=== PATIENT | male | born 1950 | race Caucasian/White ===

== ENCOUNTER 2016-04-11 11:42 | Inpatient (IN) | payer MEDICARE, BC ==
[~2016-04-11] VITALS: Ht 175.3 cm; Wt 77.8 kg
[~2016-04-11 11:42] MED LIST: ASPIRIN E.C. 8181 MG PO; HYDROXYURE500 MG/CAP PO; LOPRESSOR HCT 21 TA1 PO; MASON NATURAL1200 MG PO; MULTI VITAMINS1 TAB PO; RT ADVAIR 528 DISKUS IH; RT SPIRIVA18 MCG IH; SLO-NIACIN500 MG PO; ZESTRIL 10MG10 MG PO
[2016-04-11 12:19] LABS: BASO # 0.1 (0.0-0.2); BASO % 1.2 % (0.0-2.0); EOS # 0.1 (0.0-0.7); EOS % 0.9 % (0-4.0); GRAN # 7.8 (1.4-6.5); GRAN % 83.5 % (42.2-75.2); HEMATOCRIT 39.6 % (42.0-52.0); HEMOGLOBIN 12.9 g/dl (13.5-18.0); LYMPH # 0.9 (1.2-3.4); LYMPH % 9.7 % (20.0-51.0); MEAN CELL VOLUME 91 fl (80.0-100.0); MEAN CORPUSCULAR HEMOGLOBIN 30 pg (27.0-31.0); MEAN CORPUSCULAR HGB CONC 33 g/dl (33.0-37.0); MEAN PLATELET VOLUME 10.9 fl (7.4-10.4); MONO # 0.4 (0.1-0.6); MONO % 4.2 % (1.7-9.3); PLATELET COUNT 385 K/mm3 (130-400); RED BLOOD COUNT 4.35 M/mm3 (4.20-5.60); WHITE BLOOD COUNT 9.4 K/mm3 (4.8-10.8)
[2016-04-11 12:27] LABS: INR 1.3 (0.8-3.0); PROTHROMBIN TIME 14.1 SECONDS (9.7-12.8)
[2016-04-11 12:30] LABS: PARTIAL THROMBOPLASTIN TIME 33.4 SECONDS (26.0-37.0)
[2016-04-11 12:37] LABS: ARTERIAL BLD GAS O2 SATURATION 98.1 % (92-100); ARTERIAL BLD GAS TCO2 CT 26.7; ARTERIAL BLOOD GAS BASE EXCESS 2.5 (-2-2); ARTERIAL BLOOD GAS HCO3 25.6 meq/L (22-26); ARTERIAL BLOOD GAS PHT 7.49 C (7.35-7.45); ARTERIAL BLOOD GAS PO2 118.8 mmHg (80-100); ARTERIAL BLOOD GAS PO2T 118.8 (80-100); ARTERIAL BLOOD GAS pH 7.49 (7.35-7.45); OXYHEMOGLOBIN 97.2 %
[2016-04-11 12:38] LABS: ALLEN TEST YES; ALLENS TEST RESULT PASS; ATS? YES
[2016-04-11 13:39] LABS: ADJUSTED CALCIUM 9.7 mg/dL (8.4-10.2); ALBUMIN 3.1 gm/dL (3.5-5.0); BILIRUBIN,TOTAL 1.6 mg/dL (0.0-1.0); CREATININE, serum 0.6 mg/dL (0.66-1.25); TOTAL PROTEIN 7.7 gm/dL (6.4-8.2)
[2016-04-11 13:50] LABS: TROPONIN-I 0.028 ng/mL (0.000-0.034)
[2016-04-11 19:08] LABS: TROPONIN-I 0.027 ng/mL (0.000-0.034)
[2016-04-11 19:25] LABS: PH 5 (5-8); SQUAMOUS EPITHELIAL 0-2 /hpf; URINE APPEARANCE Clear; URINE BACTERIA Rare /hpf; URINE BILIRUBIN Negative (NEGATIVE); URINE BLOOD Negative (NEGATIVE); URINE COLOR Amber; URINE GLUCOSE Negative (NEGATIVE); URINE KETONE Trace (NEGATIVE); URINE RBC 0-2 /hpf; URINE UROBILINOGEN >=4.0 mg/dL (NEGATIVE)
[2016-04-11 20:12] VITALS: BP 107/63; PULSE 110; TEMP 98.8
[2016-04-12] VITALS (7 sets, daily range): BP systolic 112–131; BP diastolic 69–88; PULSE 68–119; TEMP 97.4–98.4
[2016-04-12 16:34] LABS: BASO # 0.1 (0.0-0.2); BASO % 0.9 % (0.0-2.0); EOS # 0.1 (0.0-0.7); EOS % 0.7 % (0-4.0); GRAN # 6.9 (1.4-6.5); GRAN % 84.7 % (42.2-75.2); LYMPH # 0.8 (1.2-3.4); LYMPH % 9.5 % (20.0-51.0); MEAN CELL VOLUME 92 fl (80.0-100.0); MEAN CORPUSCULAR HGB CONC 32 g/dl (33.0-37.0); MEAN PLATELET VOLUME 10.5 fl (7.4-10.4); MONO # 0.3 (0.1-0.6); MONO % 3.6 % (1.7-9.3); PLATELET COUNT 297 K/mm3 (130-400); RED BLOOD COUNT 4.01 M/mm3 (4.20-5.60); REDCELL DISTRIBUTION WIDTH-CV 17.8 % (11.5-14.5); WHITE BLOOD COUNT 8.1 K/mm3 (4.8-10.8)
[2016-04-12 16:52] LABS: CALCIUM 8.8 mg/dL (8.4-10.2); CREATININE, serum 0.53 mg/dL (0.66-1.25); POTASSIUM 3.6 mmol/L (3.4-5.0)
[2016-04-12 16:54] LABS: HEMATOCRIT 36.8 % (42.0-52.0); HEMOGLOBIN 11.8 g/dl (13.5-18.0); MEAN CORPUSCULAR HEMOGLOBIN 29 pg (27.0-31.0)
[2016-04-13 03:32] VITALS: BP 113/79; PULSE 85; TEMP 96.8
[2016-04-13 07:38] VITALS: BP 120/79; PULSE 120; TEMP 98.5
[2016-04-13 09:44] LABS: CALCIUM 8.9 mg/dL (8.4-10.2); CREATININE, serum 0.58 mg/dL (0.66-1.25); MAGNESIUM 1.6 mg/dL (1.6-2.3); POTASSIUM 3.4 mmol/L (3.4-5.0)
[2016-04-13 11:03] VITALS: BP 115/79; PULSE 120; TEMP 98.3
[2016-04-13 15:11] VITALS: BP 130/88; PULSE 121; TEMP 97.5
[2016-04-13 19:40] VITALS: BP 117/79; PULSE 124; TEMP 97.9
[2016-04-13 23:50] VITALS: BP 99/60; PULSE 130; TEMP 98.7
[2016-04-14 03:56] VITALS: BP 93/51; PULSE 117; TEMP 98.4
[2016-04-14 07:43] VITALS: BP 118/76; PULSE 121; TEMP 98
[2016-04-14 08:50] LABS: CALCIUM 8.7 mg/dL (8.4-10.2); CREATININE, serum 0.6 mg/dL (0.66-1.25); MAGNESIUM 1.4 mg/dL (1.6-2.3)
[2016-04-14 09:01] LABS: INR 1.3 (0.8-3.0); PROTHROMBIN TIME 14.4 SECONDS (9.7-12.8)
[2016-04-14 11:25] VITALS: BP 104/65; PULSE 116; TEMP 98.4
[2016-04-14 14:39] LABS: PERITONEAL -POLYMORPHONUCLEAR 43.2 % (0-25); PERITONEAL FLUID RBC 1000 /mm3 (0-0)
[2016-04-14 16:02] VITALS: BP 100/70; PULSE 61; TEMP 98.4
[2016-04-14 20:49] VITALS: BP 103/61; PULSE 124; TEMP 98.5
[2016-04-14 23:18] LABS: CARCINOEMBRYONIC ANTIGEN 1.6 ng/mL (0.0-5.0)
[2016-04-14 23:53] VITALS: BP 91/51; PULSE 127; TEMP 98.4
[2016-04-15 04:03] VITALS: BP 92/62; PULSE 110; TEMP 97
[2016-04-15 08:29] VITALS: BP 105/73; PULSE 109
[2016-04-15 09:02] LABS: CALCIUM 8.4 mg/dL (8.4-10.2); CREATININE, serum 0.62 mg/dL (0.66-1.25); MAGNESIUM 1.4 mg/dL (1.6-2.3); POTASSIUM 3.5 mmol/L (3.4-5.0)
[2016-04-15 11:52] VITALS: BP 129/97; PULSE 110; TEMP 98.2
[2016-04-15] MEDS ORDERED: ALDACTONE 100M100 MG PO (12:58)
[2016-04-15] MEDS ORDERED: LASIX 40MG TABL40 MG PO (12:58)
[2016-04-15] MEDS ORDERED: KLOR-CON20 MEQ PO (13:05)
[2016-04-15 14:52] VITALS: BP 129/97; PULSE 110; TEMP 98.2
== END 2016-04-15 15:59 | disposition hospice, inpatient (51) | DRG 374 ==
LOC: COL.ER 11:42 → MEDICAL 18:44
PROVIDERS: Emergency Medicine; Internal Medicine
PROC: 0W9G3ZX Drainage of Peritoneal Cavity, Percutaneous Approach, Diagnostic (ICD-10-PCS; principal; 2016-04-11)
DX: C78.6 Secondary malignant neoplasm of retroperitoneum and peritoneum (principal); E43 Unspecified severe protein-calorie malnutrition; C78.7 Secondary malignant neoplasm of liver and intrahepatic bile duct; R18.0 Malignant ascites; E87.1 Hypo-osmolality and hyponatremia; Z51.5 Encounter for palliative care; C80.1 Malignant (primary) neoplasm, unspecified; J44.9 Chronic obstructive pulmonary disease, unspecified; D47.3 Essential (hemorrhagic) thrombocythemia; I10 Essential (primary) hypertension; F17.210 Nicotine dependence, cigarettes, uncomplicated; F10.20 Alcohol dependence, uncomplicated; E87.6 Hypokalemia; E83.42 Hypomagnesemia
CPT/HCPCS: 99223-AI; 99232-AI; 99233-AI; 99239; J3475; J7030; Q9967